=== PATIENT | male | born 1990 | race Caucasian/White ===

== ENCOUNTER 2017-08-14 10:37 | Emergency (ER) | payer MEDICAID ==
[~2017-08-14] VITALS: Ht 152.4 cm; Wt 58.5 kg
[2017-08-14 10:40] VITALS: Ht 152.4 cm; Wt 58.5 kg
[2017-08-14] MEDS ORDERED: IBUPROFEN 800 MG TAB PO ONE (11:30)
--- NOTE | 2017-08-14 11:30 | ERD ---
ER Documentation Chief Complaint Date/Time DATE: 08/14/17 TIME: 11:25 Chief Complaint fell 6 feet up, has right leg pain HPI 26-year-old male who presents to the emergency room complaining of right posterior leg pain. The patient is using a freelance interpreter/translator. He states that he fell approximately 5-6 feet on a makeshift ladder. He fell onto some material. The patient landed on the posterior aspect of his right leg. He denies head trauma or loss of consciousness, no neck pain chest pain or abdominal pain. He describes contusion and pain to the posterior aspect of the femur on the right side the pain is 8 out of 10 and throbbing and worse with movement. ROS All systems reviewed and are negative except as per history of present illness. Medications Home Meds Active Scripts Ibuprofen* (Motrin*) 800 Mg Tab, 800 MG PO Q6H Y for PAIN AND OR ELEVATED TEMP, #30 TAB Prov:JEWEL AQUINO MD 08/14/17 PMhx/Soc Medical and Surgical Hx: pt denies Medical Hx, pt denies Surgical Hx Hx Alcohol Use: Yes Hx Substance Use: No Hx Tobacco Use: No Smoking Status: Never smoker FmHx Family History: No diabetes Physical Exam Vitals Vital Signs Date Time Temp Pulse Resp B/P Pulse Ox O2 Delivery O2 Flow Rate FiO2 08/14/17 10:40 98.1 99 18 126/58 99 Physical Exam Airway is intact Bilateral breath sounds Strong distal pulses No obvious deficits General: Well developed, well nourished, no acute distress Head: Normocephalic, atraumatic Eyes: Pupils equally reactive, EOM intact ENT: Moist mucous membranes Neck: Supple, no lymphadenopathy, No midline tenderness, deformities, step-offs to the cervical spine, full active and passive range of motion without midline pain. Respiratory: Lungs clear bilaterally, no distress, no chest wall tenderness, no crepitus Cardiovascular: RRR, no murmurs, rubs, or gallops Abdominal: Soft, non-tender, non-distended, no peritoneal signs, pelvis is stable : Deferred MSK: There is a contusion approximately 3 cm noted to the posterior thigh on the right lower extremity with no bony abnormalities. Normal internal and external rotation of the hip, no focal tenderness to the knee tibia-fibula, ankle. 2+ dorsalis pedis and posterior tibial pulses. No other bony abnormalities are noted on examination. No edema, no unilateral swelling, 5/5 strength, no midline tenderness deformities or step-offs to the thoracolumbar spine Neurologic: Alert and oriented, moving all extremities, normal speech, no focal weakness, no cerebellar signs Skin: No ecchymoses or bruising to the chest or abdomen Psych: Normal mood Results 24 hrs Current Medications Medications (Trade) Dose Ordered Sig/Mamadou Route PRN Reason Start Time Stop Time Status Last Admin Dose Admin Ibuprofen (Motrin) 800 mg ONCE ONCE PO 08/14/17 11:30 08/14/17 11:31 DC 08/14/17 11:23 Procedures/MDM EKG, MONITORS, & DIAGNOSTIC IMAGING: X-ray right femur: I reviewed and interpreted multiple views of the x-ray Bones: No evidence of acute fracture dislocation or subluxation Soft tissue: No evidence of foreign body MEDICAL DECISION MAKING: The patient presents with mechanical fall. The height is somewhat concerning at 5-6 feet however the patient's primary and secondary survey only revealed contusion to the right posterior thigh. This is very consistent with soft tissue injury with low clinical concern for compartment syndrome, deep space injury or fracture. However, given the height x-ray imaging of the femur would be appropriate. If clinically cleared his head, cervical spine, thoracolumbar spine. The patient has a benign abdominal exam. No evidence of calcaneus fracture or axial load injury. ER COURSE: The patient was given Motrin. Diagnostic imaging is negative as discussed above. The patient is safe for discharge. He was given expectant management precautions, return precautions and advised to follow-up with primary care physician. Again freelance interpreter/translator use during the ER course. I kept the patient and/or family informed of laboratory and diagnostic imaging results throughout the emergency room course. DISPOSITION PLAN: We discussed follow up with the patient's primary care doctor within 24 to 48 hours as needed. We also discussed return to the emergency room for worsening symptoms or worsening condition. Outpatient referral: [None required] Discharge Medications: Motrin Departure Diagnosis: Primary Impression: Contusion of right thigh Encounter type: initial encounter Qualified Code: S70.11XA - Contusion of right thigh, initial encounter Condition: Stable JEWEL AQUINO MD Aug 14, 2017 11:30
--- NOTE | 2017-08-14 12:57 | RADRPT ---
PROCEDURE: XR Right Femur. CLINICAL INDICATION: Trauma. Right leg pain. TECHNIQUE: AP and lateral views of the right femur were performed. COMPARISON: None. FINDINGS: There is no fracture or dislocation. The soft tissues are normal. Articular surfaces are intact. There is no lytic or blastic lesion. There is no radiopaque foreign body. IMPRESSION: 1. Normal images of the right femur. RPTAT: QQ .Familia Tsai MD, MD Date Time Electronically viewed and signed by .Familia Tsai MD, MD on 08/14/2017 12:56 .R/
[2017-08-14] MEDS ORDERED: IBUP800T25 PO (13:00)
[2017-08-14 13:11] VITALS: BP 122/61; PULSE 79; RESP 18; TEMP 98
== END 2017-08-14 13:10 | disposition home or self-care (01) ==
LOC: FTE 10:37
DX: S70.11XA Contusion of right thigh, initial encounter (principal); W17.89XA Other fall from one level to another, initial encounter; Y92.9 Unspecified place or not applicable
CPT/HCPCS: 73550; Z7502; Z7610